=== PATIENT | male | born 1975 | race Caucasian/White ===

== ENCOUNTER 2023-02-26 10:36 | Inpatient (IN) ==
--- NOTE | 2023-02-08 14:13 | PAT Medication Instructions ---
Medication Instructions Date of Service February 08, 2023 Home Medications celecoxib 200 mg capsule (Celebrex) 200 mg PO QAM pregabalin 75 mg capsule 75 mg PO BID ASK your surgeon for instructions celecoxib 200 mg capsule (Celebrex) 200 mg PO QAM Take morning of surgery With a small sip of water, OTHERWISE NOTHING TO EAT OR DRINK AFTER MIDNIGHT: pregabalin 75 mg capsule 75 mg PO BID Take evening before surgery pregabalin 75 mg capsule 75 mg PO BID Other Notes If you have any questions please call us at [phone] or [phone] or [phone] or [phone]
--- NOTE | 2023-02-12 11:15 | Anesthesiology Consultation ---
Date of Service February 12, 2023 Assessment & Plan (1) Encounter for pre-operative examination: Chart Review Chart Review: Acceptable Risk for Surgery and Patient seen in Pre Admission Testing Per PAT appt on 02/12/23, no recent illness/disease exposures, illness related symptoms, or recent illness/disease positive tests. Will leave to surgeon's discretion if preop Covid testing needed Teaching & Discussion Pre-Anesthesia Teaching/Discussion Notes: Instructed NPO after midnight before surgery,except medications with 15 cc of water. Medication instructions provided according to the PAT guidelines. History Surgery Operation Date: 02/26/23 07:45 Proposed Procedures p L4-L5 Decompression and Fusion, Spinal Cord Montkristofering - Den Maurice, Height/Weight Height: 5 ft 9 in Weight: 91.4 kg Allergies Allergy/AdvReac Type Severity Reaction Status Date / Time No Known Allergies Allergy Verified 02/04/23 12:46 Medications Home Medications Medication Instructions Recorded Confirmed Last Taken celecoxib 200 mg capsule (Celebrex) 200 mg PO QAM 02/04/23 02/04/23 Unknown pregabalin 75 mg capsule 75 mg PO BID 02/04/23 02/04/23 Unknown Past Medical History Medical History Arthritis Borderline hypertension Diet controlled Degenerative disc disease Cervical and lumbar spine History of anxiety History of depression Exercise / Class Metabolic Activity II 4-5 Yardwork/Stairs/Walk up hill (one flight of stairs - no chest pain or SOB ) Past Family History Family History Other No family history of adverse response to anesthesia Past Surgical History Surgical History H/O metal removed from eye H/O vasectomy History of carpal tunnel release left History of surgery Vocal cord polypectomy Thicket teeth removed Past Anesthesia History No Hx of Anesthesia Complications and No Family Hx of Anesthesia Complications History of PONV No Hx of PONV and No Hx of Motion Sickness Social History Smoking Status: Current every day smoker Smoking cigarettes per day: 3 cig daily>advised Do You Dip or Chew Tobacco: No Hx Alcohol Use: Yes Alcohol type: wine and hard liquor alcohol intake frequency: a few times a month substance use type: does not use Review of Systems Patient denies chest pain, shortness of breath, dyspnea on exertion, reflux, cough, wheezing, palpitations. No hx of seizures, stroke, [place], apnea/snoring. No hx of blood clots or blood transfusions Physical Exam Vital Signs VITALS BP 142/84 P 75 TEMP 98.1 SP02 95% RESP 16 Constitutional no acute distress ENMT Mouth: + small oral opening; no TMJ clicking Thyromental Distance: > or= 3.5 Finger Breadths Mallampati Class: IV Mouth / Teeth: 1. Missing 2. Missing 3. Missing Missing side teeth, molars and see picture above Neck + facial hair (advised to trim/shave); neck extension not limited Respiratory normal respiratory effort; no respiratory distress Auscultation: lungs clear to auscultation bilaterally; no wheezes Cardiovascular Rate/Rhythm: regular rate and regular rhythm Heart Sounds: no murmur Vessels: no carotid bruit Musculoskeletal Spine: + pain with cervical ROM Extremities: extremities normal to inspection Psychiatric Orientation: alert Lab Results Anesthesia Preop Results Results Anesthesia Widget: WBC 7.73 K/ul (4.8-10.8) 02/12/23 Hgb 15.8 g/dl (14.0-18.0) 02/12/23 Hct 44.9 % (42.0-52.0) 02/12/23 Plt 219 K/uL (130-400) 02/12/23 Na 137 mmol/L (136-145) 02/12/23 K 4.0 mmol/L (3.5-5.1) 02/12/23 Cl 106 mmol/L (98-107) 02/12/23 CO2 26 mmol/L (21-32) 02/12/23 BUN 15 mg/dl (6-23) 02/12/23 Creat 0.90 mg/dl (0.6-1.4) 02/12/23 Glucose Level 95 mg/dl (70-99(Fasting)) 02/12/23 PT 10.0 Seconds (9.0-12.0) 02/12/23 PTT 28.6 Seconds (21.0-31.0) 02/12/23 INR 0.9 (0.9-1.1) 02/12/23 Urine Color Yellow 02/12/23 Urine Appearance Clear (Clear) 02/12/23 Urine pH 7.0 (4.5-7.5) 02/12/23 Urine Specific [place] 1.010 (1.000-1.030) 02/12/23 Urine Protein Negative (Negative) 02/12/23 Urine Glucose (UA) Negative (Negative) 02/12/23 Urine Ketones Negative (Negative) 02/12/23 Urine Blood Negative (Negative) 02/12/23 Urine Nitrite Negative (Negative) 02/12/23 Urine Bilirubin Negative (Negative) 02/12/23 Urine Urobilinogen Negative (Negative) 02/12/23 Urine Leukocyte Esterase Negative (Negative) 02/12/23 Blood Type A Positive 02/12/23 Antibody Screen NEGATIVE 02/12/23 Testing Electrocardiogram Date: 02/11/23 Findings: + NSR @ (75bpm) Normal EKG per cardio Chest X-Ray Date: 02/12/23 Findings: + NAD
[~2023-02-26 10:36] MED LIST: ACETAMINOPHEN 500 MG TAB PO SCH; CeleBREX 200 MG CAP PO SCH; GABAPENTIN 900 MG DOSE PO SCH; LR 15ML/HR IV SCH; LR 60ML/HR IV SCH; ceFAZolin 2000MG 2,000 MG/15 ML SYR IV SCH
[2023-02-26] MEDS ORDERED: MIDAZOLAM HCL 1 MG/ML 2ML VIAL ONE (12:22)
[2023-02-26] MEDS ORDERED: PROPOFOL IV EMULSION 10 MG/ML 20 ML VIAL IV ONE (12:22)
[2023-02-26] MEDS ORDERED: fentaNYL citrate PF 100 MCG/2 ML VIAL ONE (12:22)
[2023-02-26] MEDS ORDERED: LIDOCAINE 2% 2 ML VIAL/AMP(20MG/ML) INFIL ONE (12:22)
[2023-02-26] MEDS ORDERED: ePHEDrine sulfate 50 MG/ML AMP IV PRN (12:24)
[2023-02-26] MEDS ORDERED: ONDANSETRON INJ 2 MG/ML 2 ML VIAL IV PRN ×2 (12:24→20:04)
[2023-02-26] MEDS ORDERED: ATROPINE SULFATE 0.1 MG/ML 10ML SYR IV PRN (12:24)
[2023-02-26] MEDS ORDERED: DEXAMETHASONE SOD INJ 4 MG/ML VIAL ONE ×2 (12:37→13:47)
[2023-02-26] MEDS ORDERED: ONDANSETRON INJ 2 MG/ML 2 ML VIAL ONE ×2 (12:37→14:38)
[2023-02-26] MEDS ORDERED: ROCURONIUM BROMIDE 10 MG/ML 5 ML VIAL IV ONE ×2 (12:37→14:18)
--- NOTE | 2023-02-26 12:49 | History & Physical Bridge Note ---
Date of Service February 26, 2023 History & Physical Bridge Note I have examined the patient, reviewed the History & Physical and in the interval since the performance of the History & Physical I have noted the following changes of clinical significance: no changes noted
--- NOTE | 2023-02-26 12:50 | History & Physical Report ---
Date of Service February 26, 2023 Assessment & Plan (1) Neurogenic claudication due to lumbar spinal stenosis: Plan: L4-L5 decompression and fusion History of Present Illness Chief Complaint: Back and bilateral leg pain Primary Care Provider: NO PCP This is a 47-year-old male presents with chronic persistent back and leg pain and failing to extensive course of nonoperative care is here for surgical intervention. Allergies Allergy/AdvReac Type Severity Reaction Status Date / Time No Known Allergies Allergy Verified 02/26/23 11:02 Home Medications Medication Instructions Recorded Confirmed Type celecoxib 200 mg capsule (Celebrex) 200 mg PO QAM 02/04/23 02/26/23 History pregabalin 75 mg capsule 75 mg PO BID 02/04/23 02/26/23 History Past Med/Surg History Medical History Arthritis Borderline hypertension Diet controlled Degenerative disc disease Cervical and lumbar spine History of anxiety History of depression Surgical History H/O metal removed from eye H/O vasectomy History of carpal tunnel release left History of surgery Vocal cord polypectomy [place] teeth removed Family History Other No family history of adverse response to anesthesia Social History Smoking Status: Current every day smoker Tobacco Type: Cigarettes Cigarettes Per Day: 3 cig daily>advised; Second Hand Exposure: No; Do You Dip or Chew Tobacco: No; Hx Alcohol Use: Yes Alcohol type: wine and hard liquor Preferred Language: Turkish Senior Web Services Developer Required: No Beliefs That Will Affect Care: None Current Living Situation: Alone Feels Safe at Home: Yes Safety Concerns: Feels Safe At This Time Assistive Devices: Glasses Physical Exam Physical Exam: Patient is alert and oriented Heart regular rate and rhythm Lungs clear Results & Data Results & Data Vital Signs (Past 12 Hours) Vital Signs Temp Pulse Resp BP Pulse Ox O2 Del Method 02/26/23 11:10 36.7 C 75 20 143/104 H 95 Room Air
[2023-02-26] MEDS ORDERED: BUPIVACAINE/EPINEPHRINE 0.25% 1:200,000 30 ML VIAL ONE (13:02)
[2023-02-26] MEDS ORDERED: ceFAZolin 330 MG/ML 1 GM VIAL ONE (13:02)
[2023-02-26] MEDS ORDERED: HYDROmorphone INJ 2 MG/ML SYR/VIAL ONE (13:34)
[2023-02-26] MEDS ORDERED: FLOSEAL HEMOSTATIC MATRIX 10ML TOP ONE (14:04)
[2023-02-26] MEDS ORDERED: ePHEDrine sulfate 50 MG/5 ML SYR ONE (14:18)
[2023-02-26] MEDS ORDERED: PHENYLEPHRINE 100MCG/ML 10ML SYR IV ONE (14:18)
[2023-02-26] MEDS ORDERED: SUGAMMADEX SODIUM 200 MG/2 ML VIAL IV ONE (14:38)
[2023-02-26] MEDS ORDERED: GLYCOPYRROLATE 0.2 MG/ML VIAL ONE (15:16)
--- NOTE | 2023-02-26 15:50 | Operative Report ---
Post Operative Report Pre & Post Diagnosis Operation Date: 02/26/23 12:25 Pre-Op Diagnosis: Neurogenic Claudication due to Lumbar Spinal Stenosis Spondylolisthesis L5-S1 Post-Op Diagnosis: Same I identified the patient and participated in the time-out.: Yes Procedure Operation Date: 02/26/23 12:25 Actual Procedures #1 lumbar decompression bilateral medial facetectomies and foraminotomies L3-L4, L4-5 and L5-S1. #2 posterior spinal fusion L4-S1. #3 placement posterior instrumentation L4-S1. #4 interbody fusion L4-L5 #5 placement of Spira 14 x 26 mm cage x2 at L4-5 #6 placement locally harvested morselized autograft in the posterior gutters. #7 placement of I factor combined with V toss in the interbody space and posterior lateral gutters. Surgeon Den Maurice, DO Child Welfare Director Jackson rWight Estimated Blood Loss 250 Findings Consistent with Post-Op Diagnosis Specimens None Indications This is a 47-year-old male the presents above-mentioned diagnosis of failed course of nonoperative care is here for surgical invention. Description of Procedure Patient was met with identified informed consent obtained. Patient was then taken to the operative suite underwent patient placed in a prone position ingestible top Shad frame. All bony promises well-padded eyes inspected to ensure no external pressure placed 1. This point the lumbar spine was prepped and draped in normal sterile fashion. Sharp dissection with the assistance of Bovie cautery form down to and exposing the lamina and transverse processes of L4. I had to extend the dissection down to S1 to adequately and safely decompress the canal. Subsequently performed a complete laminectomy of L4-5 L4 and partial laminectomy of L3 performing medial facetectomies and foraminotomies. Pedicle screws were then placed in L4 and S1 levels bilaterally with assistance of fluoroscopy in the process edilberto contoured and placed. By way of a transforaminal approach on the right and discectomy of L4-L5 was performed endplates guarded to subcortical bleeding bone and a 14 x 26 mm Spira cage with I factor tapped in position. Then proceeded left transforaminal region at L4-L5 completed the discectomy curetted the endplates to subcortical bleeding bone and placed a second 14 x 26 mm Spira cage filled with I factor into place. The rods were then compressed locked in final position bilaterally. The transverse processes of L4-L5 and sacral ala burred to subcortical bleeding bone. I factor amount of the testing locally harvested morselized graft was placed in the posterior lateral gutters. 15 round LETTY inserted. The incision was then closed with 1 Vicryl to fascia 2-0 Vicryl subcutaneously and 4 Monocryl for final skin closure. Steri-Strips sterile dressing placed. Patient waken taken to PACU stable condition. Please note spinal cord monitoring was utilized at the procedure no changes noted. Rosa Wright was present at the entire surgeon while the patient positioning complex course of the surgery and final skin closure. I attest to the content of the Intraoperative Record and any orders documented therein. Any exceptions are noted below.
[2023-02-26] MEDS: fentaNYL citrate PF 100 MCG/2 ML VIAL IV PRN ×2 (16:50→16:55)
--- NOTE | 2023-02-26 18:00 | Anesthesiology Progress Note ---
Date of Service February 26, 2023 Anesthesia Post Procedure Vital Signs Vital Signs: Temp Pulse Pulse Resp BP Pulse Ox O2 Del Method 02/26/23 17:50 95 H 18 153/99 H 94 Nasal Cannula 02/26/23 17:40 102 H 16 155/101 H 94 Nasal Cannula 02/26/23 17:30 102 H 14 153/99 H 93 Nasal Cannula 02/26/23 17:20 36.5 C 95 H 12 130/74 93 Nasal Cannula 02/26/23 17:10 102 H 12 144/70 H 93 Nasal Cannula 02/26/23 17:00 111 H 12 160/89 H 93 Nasal Cannula 02/26/23 16:50 109 H 16 164/94 H 94 Oxymask 02/26/23 16:40 110 H 12 141/115 H 95 Oxymask 02/26/23 16:32 36.3 C L 102 H 16 132/112 H 95 Oxymask 02/26/23 11:10 36.7 C 75 20 143/104 H 95 Room Air O2 Flow Rate 02/26/23 17:50 3 02/26/23 17:40 3 02/26/23 17:30 3 02/26/23 17:20 3 02/26/23 17:10 3 02/26/23 17:00 3 02/26/23 16:50 4 02/26/23 16:40 6 02/26/23 16:32 6 02/26/23 11:10 Pain Intensity Lower Back: Pain Intensity: 4 Left Hip: Pain Intensity: 6 Transfer of Care Handoff Completed per policy Notes Mental Status: alert / awake / arousable Patient Amnestic to Procedure: Yes Nausea / Vomiting: adequately controlled Pain: adequately controlled Airway Patency, RR, SpO2: stable & adequate BP & HR: stable & adequate Hydration State: stable & adequate Anesthetic Complications: no major complications apparent and Pt Satisfied with anesthetic care Notes: Of note, at end of procedure upon respositioning patient from prone to supine, pooling of blood noted in patients oropharynx and ETT. I was called to bedsed. Patient saturations in low 90s and patient was very agitated. Propofol was administered, patient and ETT were suctioned, and I preformed broch with scant secretions in bilateral bronchi. bleeding controlled. Woke patient up and extubated. Patient maintained sats and had no issues oxygenating in PACU.
[2023-02-26] MEDS: HYDROmorphone INJ 1 MG/ML SYRINGE IV PRN ×2 (18:39→18:44)
--- NOTE | 2023-02-26 19:11 | Fluoroscopy Report ---
INTRAOPERATIVE RADIOGRAPHS CLINICAL HISTORY: Lumbar spinal fusion surgery. Fluoro time: 36 seconds Ka,r: 35.05 mGy FINDINGS: 2 spot fluoroscopic views of the lumbar spine are presented. There has been discectomy at L 4-L5 with laminectomy and posterior fusion at L4-S1. Pedicular screws are present within the bodies o f L4 and S1. Metallic hardware appears intact. There is anterolisthesis of L5-S1 and retrolisthesis a t L4-L5. Severe disc space narrowing is noted at L5-S1. IMPRESSION: Intraoperative images from lumbar spinal fusion surgery as above. Electronically signed by: Miguel Chance M.D. 02/26/2023 7:09 PM
[2023-02-26] MEDS ORDERED: FAMOTIDINE 20 MG TAB PO PRN (20:04)
[2023-02-26] MEDS ORDERED: LORazepam 0.5 MG TAB PO PRN (20:04)
[2023-02-26] MEDS ORDERED: METOCLOPRAMIDE HCL INJ 5 MG/ML 2 ML VIAL IV PRN (20:04)
[2023-02-26] MEDS ORDERED: ACETAMINOPHEN 500 MG TAB PO PRN (20:04)
[2023-02-26] MEDS ORDERED: SOD PHOSPHATE/SOD BIPHOSPHATE ENEMA 132 ML BTL PR PRN (20:04)
[2023-02-26] MEDS ORDERED: ALUMINUM/MAGNESIUM SUSP 30 ML UDC PO PRN (20:04)
[2023-02-26] MEDS ORDERED: ACETAMINOPHEN 1,000 MG/100 ML VIAL IV PRN (20:04)
[2023-02-26] MEDS ORDERED: DO NOT ADMINISTER PNEUMOCOCCAL VACCINE PRN (20:04)
[2023-02-26] MEDS ORDERED: ONDANSETRON 4 MG OD TAB PO PRN (20:04)
[2023-02-26] MEDS ORDERED: DO NOT ADMINISTER FLU VACCINE PRN (20:04)
[2023-02-26] MEDS ORDERED: MAGNESIUM HYDROXIDE SUSP 30 ML UDC PO PRN (20:04)
[2023-02-26] MEDS ORDERED: NALOXONE HCL 0.4 MG/1 ML VIAL/CARP IV PRN (20:04)
[2023-02-26] MEDS ORDERED: diphenhydrAMINE Capsule 25 MG CAP PO PRN (20:04)
[2023-02-26] MEDS ORDERED: LORazepam 0.5 MG in SYRINGE 0.25 ML IV PRN (20:04)
[2023-02-26] MEDS ORDERED: PROMETHAZINE HCL 12.5 MG in SODIUM CHLORIDE 0.9% 50 ML IV PRN (20:04)
[2023-02-26] MEDS ORDERED: hydrOXYzine HCl 25 MG TAB PO PRN (20:04)
[2023-02-26] MEDS ORDERED: bisacodyL 10 MG SUPP PR PRN (20:04)
[2023-02-26] MEDS: KETOROLAC 30 MG/ML VIAL IV SCH (21:25)
[2023-02-26] MEDS: LACTATED RINGER'S 1,000 ML IV SCH (21:26)
[2023-02-26] MEDS: PREGABALIN 75 MG CAP PO SCH (21:29)
[2023-02-26] MEDS: DOCUSATE SODIUM/SENNA 50/8.6MG TAB PO SCH (21:29)
[2023-02-26] MEDS: ceFAZolin 2000MG 2,000 MG/15 ML SYR IV SCH (22:43)
[2023-02-26] MEDS ORDERED: COUGH DROP (SUGAR FREE) LOZ 24 LOZ/1 BOX BUCCAL STA (22:57)
[2023-02-26] MEDS ORDERED: COUGH DROP (SUGAR FREE) LOZ 24 LOZ/1 BOX BUCCAL ONE (22:59)
[2023-02-27] MEDS: KETOROLAC 30 MG/ML VIAL IV SCH ×3 (00:57→14:28)
[2023-02-27] MEDS: POLYETHYLENE (MIRALAX) 17 GM PACK PO SCH ×4 (07:54→22:06)
[2023-02-27] MEDS: oxyCODONE HCL IR 5 MG TAB (IMMEDIATE RELEASE) PO PRN ×3 (07:54→21:55)
[2023-02-27] MEDS: PREGABALIN 75 MG CAP PO SCH ×2 (07:55→21:08)
[2023-02-27 08:24] LABS: Basophils # (auto) 0.02 K/uL (0.00-0.20); Basophils % (auto) 0.1 %; Eosinophils # (auto) 0.03 K/uL (0.00-0.50); Eosinophils % (auto) 0.2 %; Hematocrit (blood only) 39.5 % (42.0-52.0); Hemoglobin 13.5 g/dl (14.0-18.0); Immature Granulocytes # (auto) 0.06 K/uL (0.01-0.20); Immature Granulocytes % (auto) 0.4 %; Lymphocytes # (auto) 1.98 K/uL (1.20-3.40); Lymphocytes % (auto) 13.4 %; Mean Corpuscular Hemoglobin 31.5 pg (25.0-34.0); Mean Corpuscular Hgb Conc 34.2 g/dL (32.0-36.0); Mean Corpuscular Volume 92.1 fL (80.0-100.0); Monocytes # (auto) 1.33 K/uL (0.11-0.59); Neutrophils # (auto) 11.37 K/uL (1.40-6.50); Neutrophils % (auto) 76.9 %; Platelet Count 203 K/uL (130-400); RDW Standard Deviation 43.9 fL (36.4-46.3); Red Blood Count 4.29 M/uL (4.70-6.10); White Blood Count 14.79 K/ul (4.8-10.8)
[2023-02-27 08:32] LABS: BUN Creatinine Ratio 17.9 (10-20); Calcium 8.6 mg/dl (8.6-10.3); Est GFR (African American) 108.5 ml/min; Est GFR (Non-African American) 93.6 ml/min
--- NOTE | 2023-02-27 08:55 | Orthopedic Progress Note ---
Date of Service February 27, 2023 Assessment & Plan (1) Neurogenic claudication due to lumbar spinal stenosis: Plan: We will have him undergo formalized physical therapy today monitor his LETTY operatively discharge in the next few days. Admission and Anticipated Discharge Date Admission Date: February 26, 2023 Subjective Patient back pain is controlled. Struggling with some left sciatica that is improving. He has been ambulate the halls. Physical Exam Physical Exam: On exam he is comfortable this time. Is constricted testing extremities. Results & Data Vital Signs (Past 12 Hours) Vital Signs Temp Pulse Resp BP Pulse Ox O2 Del Method 02/27/23 08:00 36.5 C 72 18 144/77 H 92 Room Air 02/27/23 07:00 36.8 C 80 18 159/84 H 95 Room Air 02/27/23 03:02 36.6 C 95 H 20 164/81 H 96 Room Air 02/26/23 22:41 36.7 C 98 H 18 138/71 94 Room Air 02/26/23 21:31 36.5 C 91 H 18 177/98 H 94 Room Air
[2023-02-27] MEDS ORDERED: dexAMETHasone 6 MG in SYRINGE 0 ML IV SCH (09:00)
[2023-02-27] MEDS: LACTATED RINGER'S 1,000 ML IV SCH ×3 (09:22→15:23)
[2023-02-27] MEDS: ceFAZolin 2000MG 2,000 MG/15 ML SYR IV SCH (09:28)
[2023-02-27] MEDS: DOCUSATE SODIUM/SENNA 50/8.6MG TAB PO SCH (21:08)
[2023-02-28] MEDS: oxyCODONE HCL IR 5 MG TAB (IMMEDIATE RELEASE) PO PRN ×3 (05:28→21:09)
[2023-02-28] MEDS: POLYETHYLENE (MIRALAX) 17 GM PACK PO SCH ×4 (05:28→22:31)
[2023-02-28] MEDS: HYDROmorphone INJ 0.5 MG/0.5 ML SYR IV PRN ×2 (08:17→12:38)
[2023-02-28] MEDS: PREGABALIN 75 MG CAP PO SCH ×2 (08:17→21:09)
[2023-02-28] MEDS: dexAMETHasone 8 MG in SYRINGE 0 ML IV SCH (08:18)
[2023-02-28] MEDS ORDERED: KETOROLAC 30 MG/ML VIAL IV PRN (08:40)
--- NOTE | 2023-02-28 08:43 | Orthopedic Progress Note ---
Date of Service February 28, 2023 Assessment & Plan (1) Neurogenic claudication due to lumbar spinal stenosis: Plan: Bruce is postoperative day 2 status post TLIF L4-5. In order an x-ray today to check for hardware alignment. We will continue with physical therapy. He is on Lyrica and I have added Toradol for pain control. We will consider discharge home within the next couple days. Admission and Anticipated Discharge Date Admission Date: February 26, 2023 Subjective Bruce is postoperative day 2 status post TLIF L4-5. He struggling with left lower extremity pain, numbness and, weakness. He states these are all new since surgery. Right leg symptoms have resolved. He had a bowel movement. LETTY drain output last shift was 80 cc. Yesterday in physical therapy ambulating 300 feet. He states his left foot is "flopping" when he ambulates in therapy. He is most comfortable sleeping in the recliner. Review of Systems Review of Systems: All systems reviewed & are unremarkable except as noted in HPI & below Physical Exam Physical Exam: Alert and oriented x3 No acute distress Nontender over the greater trochanter region 4 to 4+/5 left dorsiflexion and EHL othe rwise strength is intact Lumbar dressing is clean dry intact with functioning LETTY drain Results & Data Vital Signs (Past 12 Hours) Vital Signs Temp Pulse Resp BP Pulse Ox O2 Del Method 02/28/23 07:28 36.4 C L 85 15 130/82 96 Room Air 02/28/23 00:40 Room Air
--- NOTE | 2023-02-28 09:45 | XRay Report ---
XR lumbar spine 2-3V CLINICAL HISTORY: Left lower extremity pain,weakness post op COMPARISON STUDY: 02/26/2023. FINDINGS: L4-S1 posterior decompression fusion with pedicle screws and rods. The pedicle screws are a t the L4 and S1 levels. The hardware appears intact. Chronic anterolisthesis of L5 on S1 is noted. Th ere is severe disc space narrowing at L5-S1. No acute fractures within the lumbar spine. The visualiz ed sacrum is intact. Mild anterior wedging at the superior endplate of T11. This is consistent with a n age-indeterminate compression fracture. Surgical drain noted at the laminectomy site. IMPRESSION: 1. No acute fractures within the lumbar spine. 2. Postoperative changes again noted within the lower lumbar spine. The hardware appears intact. 3. Mild superior endplate compression deformity at T11. This is age indeterminate but likely chronic. ACT 112: Negative or not required by law. Electronically signed by: Flaquito Simmons M.D. 02/28/2023 9:44 AM
[2023-02-28] MEDS ORDERED: CHLORASEPTIC 1.4% SOLN 180 ML BTL MT PRN (12:45)
[2023-02-28] MEDS: DOCUSATE SODIUM/SENNA 50/8.6MG TAB PO SCH (21:09)
[2023-03-01] MEDS: traMADol HCL 50 MG TABLET PO PRN ×5 (00:15→21:00)
[2023-03-01] MEDS: POLYETHYLENE (MIRALAX) 17 GM PACK PO SCH ×2 (05:54→13:10)
[2023-03-01] MEDS: PREGABALIN 75 MG CAP PO SCH ×2 (07:57→21:01)
[2023-03-01] MEDS: dexAMETHasone 8 MG in SYRINGE 0 ML IV SCH (08:13)
--- NOTE | 2023-03-01 09:52 | Orthopedic Progress Note ---
Date of Service March 01, 2023 Assessment & Plan (1) Neurogenic claudication due to lumbar spinal stenosis: Plan: At this time we will make him n.p.o. after midnight and plan for irrigation debridement lumbar spine tomorrow. Admission and Anticipated Discharge Date Admission Date: February 26, 2023 Subjective Patient continues to have left leg pain. He is able to ambulate. Physical Exam Physical Exam: On exam is currently in bed. He has diminished strength testing left lower extremity with sensory deficit. Results & Data Vital Signs (Past 12 Hours) Vital Signs Temp Pulse Resp BP Pulse Ox O2 Del Method 03/01/23 07:37 36.5 C 69 18 136/79 97 Room Air
[2023-03-01] MEDS: DOCUSATE SODIUM/SENNA 50/8.6MG TAB PO SCH (21:01)
[2023-03-02] MEDS: traMADol HCL 50 MG TABLET PO PRN ×2 (06:30→18:27)
[2023-03-02] MEDS: PREGABALIN 75 MG CAP PO SCH ×2 (08:07→21:39)
[2023-03-02] MEDS: oxyCODONE HCL IR 5 MG TAB (IMMEDIATE RELEASE) PO PRN (10:08)
[2023-03-02] MEDS ORDERED: MIDAZOLAM HCL 1 MG/ML 2ML VIAL ONE (10:42)
[2023-03-02] MEDS ORDERED: ROCURONIUM BROMIDE 10 MG/ML 5 ML VIAL IV ONE (10:42)
[2023-03-02] MEDS ORDERED: fentaNYL citrate PF 100 MCG/2 ML VIAL ONE (10:42)
[2023-03-02] MEDS ORDERED: PROPOFOL IV EMULSION 10 MG/ML 20 ML VIAL IV ONE (10:42)
[2023-03-02] MEDS ORDERED: LIDOCAINE 2% 2 ML VIAL/AMP(20MG/ML) INFIL ONE (10:42)
[2023-03-02] MEDS ORDERED: DEXAMETHASONE SOD INJ 4 MG/ML VIAL ONE (10:42)
[2023-03-02] MEDS ORDERED: ACETAMINOPHEN 1000 MG/100 ML IV IV ONE (10:47)
[2023-03-02] MEDS ORDERED: DexMEDEtomidine HCL IV 100 MCG/ML VIAL IV ONE (10:48)
[2023-03-02] MEDS ORDERED: BUPIVACAINE/EPINEPHRINE 0.25% 1:200,000 30 ML VIAL ONE (11:35)
[2023-03-02] MEDS ORDERED: ceFAZolin 330 MG/ML 1 GM VIAL ONE (11:35)
[2023-03-02] MEDS ORDERED: LACTATED RINGER'S 1,000 ML IV SCH (12:15)
[2023-03-02] MEDS ORDERED: ceFAZolin 2000MG 2,000 MG/15 ML SYR IV ONE (12:25)
[2023-03-02] MEDS ORDERED: ceFAZolin 2,000 MG/15 ML IV PUSH IV ONE (12:27)
--- NOTE | 2023-03-02 12:29 | History & Physical Bridge Note ---
Date of Service March 02, 2023 History & Physical Bridge Note I have examined the patient, reviewed the History & Physical and in the interval since the performance of the History & Physical I have noted the following changes of clinical significance: no changes noted irrigation and debridement lumbar spine
--- NOTE | 2023-03-02 12:40 | Anesthesiology Consultation ---
Date of Service March 02, 2023 Assessment & Plan Chart Review Chart Review: Acceptable Risk for Surgery Consults Requested none History Surgery Operation Date: 02/26/23 12:25 Proposed Procedures p L4-L5 Decompression and Fusion with Spinal Cord Montioring - Den Maurice DO Operation Date: 03/02/23 14:15 Proposed Procedures p Incision and Drainage Lumbar Spine - Den Maurice DO Height/Weight Height: 5 ft 9 in Weight: 93.1 kg Allergies Allergy/AdvReac Type Severity Reaction Status Date / Time No Known Allergies Allergy Verified 02/26/23 11:02 Medications Home Medications Medication Instructions Recorded Confirmed Last Taken celecoxib 200 mg capsule (Celebrex) 200 mg PO QAM 02/04/23 02/26/23 02/25/23 23:00 pregabalin 75 mg capsule 75 mg PO BID 02/04/23 02/26/23 02/26/23 07:00 oxycodone 5 mg tablet 5 mg PO Q6H PRN pain #30 tabs 02/27/23 Unknown tramadol 50 mg tablet 50 mg PO Q6H PRN pain, moderate 02/27/23 Unknown #30 tabs Active Medications Generic Name Dose Route Start Last Admin Trade Name Freq PRN Reason Stop Dose Admin Hydromorphone HCl 0.5 mg 02/26/23 20:04 02/28/23 12:38 Hydromorphone Inj 0.5 Mg/0.5 Ml Syr IV 03/12/23 20:03 0.5 mg Q3H PRN Administration MODERATE Pain (Scale 4,5,6) & Pre PT Lactated Ringer's 1,000 mls @ 15 mls/hr 03/02/23 12:15 03/02/23 12:11 Lr IV 04/01/23 12:14 15 mls/hr .Q24H VELIA Administration Oxycodone HCl 5 - 10 mg 02/26/23 20:04 03/02/23 10:08 Oxycodone Hcl Ir 5 Mg Tab (Immediate Release) PO 03/12/23 20:03 10 mg Q4H PRN Administration Pain & Pre PT Phenol 2 sprays 02/28/23 12:45 02/28/23 14:39 Chloraseptic 1.4% Soln 180 Ml Btl MT 03/30/23 12:44 2 sprays Q4H PRN Administration Sore Throat Pregabalin 75 mg 02/26/23 21:00 03/02/23 08:07 Pregabalin 75 Mg Cap PO 03/28/23 20:59 75 mg BID VELIA Administration Senna/Docusate Sodium 2 tab 02/26/23 21:00 03/01/23 21:01 Docusate Sodium/Senna 50/8.6mg Tab PO 03/28/23 20:59 2 tab HS VELIA Administration Tramadol HCl 50 - 100 mg 02/26/23 20:04 03/02/23 06:30 Tramadol Hcl 50 Mg Tablet PO 03/28/23 20:03 100 mg Q4H PRN Administration Moderate-Severe pain & Pre PT NPO Date Last Intake of Fluids: 03/01/23 Time Last Intake of Fluids: 23:55 Last Intake of Fluids Comment: sip with meds Date Last Intake of Solids: 03/01/23 Time Last Intake of Solids: 17:00 Past Medical History Medical History Arthritis Borderline hypertension Diet controlled Degenerative disc disease Cervical and lumbar spine History of anxiety History of depression Past Family History Family History Other No family history of adverse response to anesthesia Past Surgical History Surgical History H/O metal removed from eye H/O vasectomy History of carpal tunnel release left History of surgery Vocal cord polypectomy [place] teeth removed Social History Smoking Status: Current every day smoker Smoking cigarettes per day: 3 cig daily>advised Do You Dip or Chew Tobacco: No Hx Alcohol Use: No Alcohol type: wine and hard liquor alcohol intake frequency: a few times a month Hx Substance Use: No substance use type: does not use Physical Exam Vital Signs Last Vital Signs Temp 36.6 C 03/02/23 12:08 Pulse 68 03/02/23 12:08 Resp 18 03/02/23 12:08 BP 161/105 H 03/02/23 12:08 Pulse Ox 95 03/02/23 12:08 O2 Del Method Room Air 03/02/23 12:08 O2 Flow Rate 2 02/26/23 20:10 Testing Laboratory Results 02/27/23 07:36 02/27/23 07:36
[2023-03-02] MEDS ORDERED: KETAMINE HCL 10MG/ML SYR ONE (12:53)
[2023-03-02] MEDS ORDERED: PHENYLEPHRINE HCL 10 MG/ML VIAL ONE (13:17)
[2023-03-02] MEDS ORDERED: ePHEDrine sulfate 50 MG/ML AMP ONE (13:17)
[2023-03-02] MEDS ORDERED: FLOSEAL HEMOSTATIC MATRIX 10ML TOP ONE (13:27)
[2023-03-02] MEDS ORDERED: SUGAMMADEX SODIUM 200 MG/2 ML VIAL IV ONE (13:37)
--- NOTE | 2023-03-02 13:46 | Operative Report ---
Post Operative Report Pre & Post Diagnosis Operation Date: 03/02/23 14:15 Pre-Op Diagnosis: Left leg sciatica Post-Op Diagnosis: Same I identified the patient and participated in the time-out.: Yes Procedure Operation Date: 03/02/23 14:15 Actual Procedures #1 evacuation of lumbar hematoma. #2 revision foraminotomies L4-L5 L5-S1 on the left. Surgeon Den Maurice, Dinkey Press Operator Sangeetha Rubio Estimated Blood Loss 100 Findings Consistent with Post-Op Diagnosis Specimens None Indications This is a 47-year-old male status post lumbar decompression fusion. Postoperatively began experiencing left leg sciatica with development of a foot drop. Subsequently we chose to explore evacuate any evidence of hematoma or further neural compression. Description of Procedure Patient was met with identified informed consent obtained. Patient was then taken to the operative suite underwent ablation placed in a prone position the Sushant table top of the Shad frame. All bony promises well-padded I suspected to ensure no external precipice spinal. This point lumbar spine was prepped and draped no sterile fashion. I then opened up the previous incision site down to and exposing the hardware. I completely evacuate all hematoma and explored the lateral recesses and foramina for any migration of bone graft contributing to compression. After this complete I explored the exiting L4 and L5 nerve roots. I performed revision foraminotomies L4-L5 L5-S1 on the left. Incision was then copiously irrigated with antibiotic solution 10 round LETTY inserted. Then closed with 1 Vicryl fascia 2-0 Vicryl subcutaneously and Fortical for final closure. Steri-Strips sterile dressings placed. Patient waken taken to PACU in stable condition. Please note Sangeetha Rubio was present that the entire procedure involved patient positioning complex portions of the surgery and final skin closure. I attest to the content of the Intraoperative Record and any orders documented therein. Any exceptions are noted below.
[2023-03-02] MEDS ORDERED: ePHEDrine sulfate 50 MG/ML AMP IV PRN (14:24)
[2023-03-02] MEDS ORDERED: PROMETHAZINE HCL 12.5 MG in SODIUM CHLORIDE 0.9% 50 ML IV PRN (14:24)
[2023-03-02] MEDS ORDERED: ATROPINE SULFATE 0.1 MG/ML 10ML SYR IV PRN (14:24)
[2023-03-02] MEDS: HYDROmorphone INJ 2 MG/ML SYR/VIAL IV PRN ×2 (14:30→14:35)
[2023-03-02] MEDS ORDERED: DEXAMETHASONE SOD INJ 4 MG/ML VIAL IV SCH (15:27)
[2023-03-02] MEDS: dexAMETHasone 8 MG in SYRINGE 0 ML IV SCH ×2 (16:37→23:03)
[2023-03-02] MEDS: HYDROmorphone INJ 1 MG/ML SYRINGE IV PRN (21:38)
[2023-03-02] MEDS: DOCUSATE SODIUM/SENNA 50/8.6MG TAB PO SCH (21:38)
[2023-03-03] MEDS: oxyCODONE HCL IR 5 MG TAB (IMMEDIATE RELEASE) PO PRN ×4 (00:30→20:46)
[2023-03-03] MEDS: HYDROmorphone INJ 1 MG/ML SYRINGE IV PRN ×2 (01:40→04:35)
[2023-03-03] MEDS: dexAMETHasone 8 MG in SYRINGE 0 ML IV SCH ×3 (06:49→23:12)
[2023-03-03] MEDS: PREGABALIN 75 MG CAP PO SCH ×2 (08:36→20:54)
--- NOTE | 2023-03-03 08:45 | Orthopedic Progress Note ---
Date of Service March 03, 2023 Assessment & Plan (1) Neurogenic claudication due to lumbar spinal stenosis: Plan: Bruce is postop day 5 status post L4-S1 decompression and fusion and postoperative day 1 status post exploration of lumbar fusion with revision decompression on the left. He is doing much better. Left leg pain has resolved. Numbness is improving. Weakness is improving. We will continue with physical therapy today. Maintain LETTY drain. Continue with pain control. DVT prophylaxis is in the form of teds and SCDs. Anticipate discharge home tomorrow Admission and Anticipated Discharge Date Admission Date: February 26, 2023 Subjective Bruce is postoperative day 5 status post decompression fusion L4-S1 and pos toperative day 1 status post exploration of lumbar spine and revision decompression L4-5, L5-S1 on the left. This morning he states his left leg pain has resolved. Numbness is significantly improved. A little bit of improvement but noticed in the left foot weakness. LETTY drain output is 70 cc. Review of Systems Review of Systems: All systems reviewed & are unremarkable except as noted in HPI & below Physical Exam Physical Exam: He is up and amatory around the room upon arrival He is in no acute distress Calf soft and nontender lumbar dressing is clean dry and intact with functioning LETTY drain Still has 4/5 left EHL dorsiflexion and a 4+/5 left plantarflexion Results & Data Vital Signs (Past 12 Hours) Vital Signs Temp Pulse Resp BP BP Pulse Ox O2 Del Method 03/03/23 07:26 36.5 C 85 16 127/79 97 Room Air 03/03/23 03:32 36.4 C L 72 16 142/76 H 93 Room Air 03/02/23 23:19 36.3 C L 91 H 18 152/91 H 95 Room Air 03/02/23 21:45 Room Air
[2023-03-03] MEDS: DOCUSATE SODIUM/SENNA 50/8.6MG TAB PO SCH (20:47)
[2023-03-03] MEDS: HYDROmorphone INJ 0.5 MG/0.5 ML SYR IV PRN (22:06)
[2023-03-04] MEDS: oxyCODONE HCL IR 5 MG TAB (IMMEDIATE RELEASE) PO PRN ×2 (03:50→12:31)
[2023-03-04] MEDS: PREGABALIN 75 MG CAP PO SCH (07:54)
[2023-03-04] MEDS: traMADol HCL 50 MG TABLET PO PRN (07:54)
[2023-03-04] MEDS: dexAMETHasone 8 MG in SYRINGE 0 ML IV SCH (07:55)
--- NOTE | 2023-03-04 09:18 | Discharge Summary ---
Date of Service March 04, 2023 Admission HPI Per Admitting Provider This is a 47-year-old male presents with chronic persistent back and leg pain and failing to extensive course of nonoperative care is here for surgical intervention. Principal Diagnosis Lumbar spinal stenosis with neurogenic claudication Discharge Data Allergies Allergy/AdvReac Type Severity Reaction Status Date / Time No Known Allergies Allergy Verified 02/26/23 11:02 Procedures Performed Operation Date: 03/02/23 14:15 Actual Procedures p Incision and Drainage Lumbar Spine,(Not Applicable) - Den Maurice DO s revision, laminactomy L4-S1(Not Applicable) - Den Maurice DO Ordered Studies 02/26/23 12:25 FL lumbar spine 2-3V Routine 03/04/23 09:16 CT pelvis wo con Urgent Hospital Course (1) Neurogenic claudication due to lumbar spinal stenosis: Patient 1 lumbar decompression fusion trial as well as negative orthopedic for postoperative. Postoperatively and experiencing left leg sciatica that was unresolved despite therapy. We return to the OR for I&D and exploration. In that second operation I did note evidence of the inferior facet of L3 on the left to be broken and compressing the traversing root. This was addressed. The patient was awakened and returned to his room and had marked improvement of his sciatica. Subsequently he continue with therapy and was discharged home the following day. Discharge orders instructions found in chart for further review. Total Time Total Time Spent Total Time Spent (In Minutes): 20 minutes Discharge Plan Discharge Items Patient Disposition: Home - Self-Care Reason For Visit: POSTOP Discharge Diagnosis: Lumbar spinal stenosis with neurogenic claudication Activity: As commented below Non-emergency contact: Primary Care Provider Call non-emergency contact if: you have any medication questions Follow-up/Referrals: PCP,NO [Primary Care Provider] - Diet: Regular Addtl Attending Provider Instructions: ACTIVITY RECOMMENDATIONS: SELF CARE INSTRUCTIONS AFTER THORACIC/LUMBAR FUSIONS 1. You may walk to your tolerance. It is good exercise for your legs and back. Expect some back and intermittent leg aches and pains. 2. You may perform "counter-top" level activities (make a sandwich, nahum with a project, etc.). 3. No bending or lifting of more than 10 pounds or back twisting of any nature (roll like a log when turning in bed). 4. You may ride in a car for 20-30 minutes at a time. No driving until after your first visit with your doctor. 5. Frequent changes of position and restricting sitting to 30 minutes at a time will help limit the amount of back spasms and stiffness you may experience. 6. You may discontinue the use of ambulatory aids (cane, crutches, etc.) once your strength and confidence allow. 7. You may aircraft maintenance supervisor the shower and let water strike your incision when you arrive home at least once daily. Do not take a tub bath, sit in a hot tub or go into a swimming pool until after your first recheck in the office. SPECIAL CARE INSTRUCTIONS: VERY IMPORTANT TO READ AND REVIEW A. Your surgical incision has been closed with a cosmetic suture under the skin that will dissolve in about 6 weeks. In 14 days, you can use a pair of clean scissors and cut the suture that is left outside of the skin at the ends of your incision. 1. The small skin tapes can be removed 7 days after surgery if they have not fallen off by that point. 2. You may keep the wound open to air as much as possible to promote healing after post-op day number 5 unless told otherwise by your doctor. 3. If you think the wound looks like it is becoming infected (redness or worsening drainage) and/or you are experiencing fever, chill or worsening back pain and muscle spasms, contact the office so that we may evaluate you as soon as possible. B. Complications are uncommon, but please contact us if you have any signs or symptoms of: 1. wound infection (fever higher than 102.5 degrees F, redness, separation of wound, drainage, or increasing pain from the incision) 2. blood clots in legs (pain, swelling, redness and warmth in legs) 3. urinary tract infection (fever higher than 102.5 degrees F, burning upon urination or increased frequency of urination) 4. nerve problems (inability to walk on your toes or heels, numbness, loss of bowel or bladder control) 5. any other symptoms that concern you C. Please call the office at if you have any concerns or questions about your operation or recovery. D. No smoking! Smoking drastically decreases the chance of a solid fusion. E. Do not take any anti-inflammatory medications (Indocin, Advil, Motrin, Aspirin, Naprosyn, etc.) as these may inhibit the chance of a solid fusion. Tylenol is okay to take for pain. MANAGING PAIN AFTER SPINAL SURGERY 1. Narcotic medication is intended for short-term use and will be provided for surgical pain. Surgical pain usually lasts for a period of 4-6 weeks. Narcotic medication includes Percocet, Vicodin, Darvocet, Tylenol #3 or Lortab. 2. Longer-term pain is more appropriately treated with non-narcotic medication such as Tylenol ES. 3. Muscle spasm is not appropriately treated with narcotics. Muscle relaxers such as Soma, Flexeril or Skelaxin can be used along with Tylenol ES. 4. Remember that we all live with some "aches and pains". This is not unusual or uncommon after an injury or as we get older. a. Back pain is expected and may include muscle spasms for 4 to 6 weeks after surgery. The pain should gradually improve. If the pain worsens for no apparent reason, please contact the office. b. Intermittent leg pain may also be experienced and should not be concerned about unless it worsens for no apparent reason. If so, please contact the office. 5. We will provide appropriate medication within the normal guidelines of their prescribed use. We will also be very cautious and aware of potential abuse and extended duration of patients' medication needs. a. Pain medications are for your comfort and to assist with sleep and rest so that the tissue can heal. They are not provided in order to return to normal activity and should not be used through the day. To do so or worsening pain at night can result from ongoing tissue damage and development of tolerance to the prescribed medicine. 6. Please allow 2-3 days to process refills. Prescriptions will not be mailed but must be picked up at the office. FOLLOW UP VISIT: Keep your scheduled follow-up appointment. Any questions, please call the office at . Pending Studies at Discharge: No Stand-Alone Forms: My [employer], Smoking Cessation Medications and MD Order Prescriptions: New tramadol 50 mg tablet 50 mg PO Q6H PRN (Reason: pain, moderate) Qty: 30 0RF oxycodone 5 mg tablet 5 mg PO Q6H PRN (Reason: pain) Qty: 30 0RF Continued celecoxib [Celebrex] 200 mg Capsule 200 mg PO QAM pregabalin 75 mg Capsule 75 mg PO BID Discharge Orders: Discharge Order (Routine); Ordered 03/04/23 Ordered By: Den Maurice Admission Data Admit Date/Time: 02/26/23 15:52 Attending Provider: Den Maurice Admit Provider: Den Maurice Primary Care Provider: PCP,DEMIAN
--- NOTE | 2023-03-04 10:46 | CT Scan Report ---
CT pelvis wo con CLINICAL HISTORY: Rule out hernia versus hip arthritis TECHNIQUE: Helical axial images of the pelvis were obtained and displayed at 5 and 1 mm intervals. Au tomated dose lowering techniques and/or adjustment according to patient size were utilized for this e xam. This exam was performed without intravenous contrast. CT DOSE: 801.61 mGy.cm COMPARISON: None available at the time of this dictation. FINDINGS: Bladder: Unremarkable. Reproductive organs: Unremarkable. Bowel: Diverticulosis is seen without diverticulitis. The appendix is normal. Lymph nodes Pelvic: Unremarkable. Mesenteric: Unremarkable. Peritoneum: Normal Vessels: Atherosclerotic calcifications are seen. Abdominal wall: A tiny umbilical helical hernia is seen. Bones: Posterior decompression and fusion at L4-S1 is noted with grade 1 retrolisthesis of L4-L5. Min imal atherosclerotic disease is seen with trace osteophyte formation. IMPRESSION: 1. No inguinal hernia is seen. There is minimal osteoarthritis of the bilateral hip joints. 2. Incidental note is made of diverticulosis without diverticulitis. ACT 112: Negative or not required by law. Electronically signed by: Felipe Tang M.D. 03/04/2023 10:45 AM
--- NOTE | 2023-03-05 12:18 | Coding Query ---
CODING QUERY To promote full compliance with coding requirements relating to patient care, provider participation is requested in all cases of television tube inspector uncertainty. Please assist us with the question(s) below: Coding Question(s): The 03/02 Operative Report documents Hematoma and Evacuation of Lumbar Hematoma, and the Discharge Summary documents, "We return to the OR for I&D and exploration. In that second operation I did note evidence of the inferior facet of L3 on the left to be broken and compressing the traversing root. This was addressed". Please specify below, regarding Lumbar Hematoma and/or broken inferior facet of L3: ( ) Both Lumbar Hematoma and broken inferior facet of L3. Please Specify Further below in your clinical opinion: ( x ) Both are likely postoperative Complications ( ) Not Complications of procedure ( ) Other: Please Specify ( ) Lumbar Hematoma only, with no broken inferior facet of L3. Please Specify Further below in your clinical opinion: ( ) likely postoperative Complication ( ) Not Complication of procedure ( ) Other: Please Specify ( ) Other: Please Specify: . Please Specify Further below in your clinical opinion: ( ) likely postoperative Complication ( ) Not Complication of procedure ( ) Other: Please Specify Physician's Response(s): Thank you Lazara Still Principal Diagnosis: "that condition established after study, to be chiefly responsible for occasioning the admission of the patient to the hospital for care." Co-Existing Principal Diagnosis: "when two or more diagnoses equally meet the criteria for principal diagnosis as determined by the circumstances of admission, diagnostic work up, and/or therapy provided, and the Alphabetic Index, Tabular List, or another coding guideline does not provide sequencing direction, any one of the diagnoses may be sequenced first." "When the physician has documented what appears to be a current diagnosis in the body of the record, but has not included the diagnosis in the final diagnostic statement, the physician should be asked whether the diagnosis should be added." (Source [facility] 2 QTR90. p3-4) JANE
== END 2023-03-04 12:41 | disposition home or self-care (01) | DRG 454 ==
LOC: ASU 10:36 → 3N 15:52